=== PATIENT | female | born 1945 | race Caucasian/White ===

== ENCOUNTER 2016-11-21 13:14 | Outpatient (CLI) | payer MEDICARE, OTHER | END 2016-11-21 13:15 | disposition home or self-care (01) | DX: R19.7 Diarrhea, unspecified (principal) ==

== ENCOUNTER 2017-03-01 08:00 | Outpatient (CLI) | payer MEDICARE, OTHER ==
[2017-03-01 13:12] LABS: CREATININE 0.8 mg/dL (0.4-1.0)
== END 2017-03-01 23:59 ==
LOC: LAB 08:00
PROVIDERS: ATTEND Psychiatry & Neurology Neurology
DX: Z53.9 Procedure and treatment not carried out, unspecified reason (principal)
CPT/HCPCS: 36415; 82565

== ENCOUNTER 2017-03-01 12:46 | Outpatient (CLI) | payer MEDICARE, OTHER | END 2017-03-01 12:47 | disposition home or self-care (01) | LOC: LAB 12:46 | PROVIDERS: ATTEND Psychiatry & Neurology Neurology | DX: R90.89 Other abnormal findings on diagnostic imaging of central nervous system (principal) ==

== ENCOUNTER 2017-03-05 13:00 | Outpatient (CLI) | payer MEDICARE, OTHER ==
[2017-03-05] MEDS ORDERED: GADOBUTROL 7.5 MMOL/7.5 ML VIAL IVP ONE ×2 (13:51)
--- NOTE | 2017-03-05 20:58 | MRI Report ---
EXAM: MRI BRAIN WITHOUT AND WITH CONTRAST EXAM DATE: 03/05/2017 01:53 PM. CLINICAL HISTORY: Abnormal brain MRI. COMPARISON: 09/08/2016, 08/22/2016. TECHNIQUE: Multiplanar, multisequence T1-weighted and fluid-sensitive MR sequences of the brain were performed. Sequences optimized for routine evaluation. Other: None. Without and with IV Contrast: Wit hout and with contrast, 7 cc IV Gadavist. FINDINGS: Redemonstrated is a focal cluster of abnormal T1 hypointense, T2 hyperintensity in the subcortical wh ite matter of the left supramarginal gyrus, left parietal lobe without significant mass effect or vol ume loss. Lesion measures 14 x 25 mm in transaxial dimension, unchanged compared to 08/22/2016. As be fore, there is associated T2 shine-through and hyperintensity on diffusion weighted sequence. There i s no associated enhancement or hemorrhage. Remainder of the brain parenchyma shows normal signal and morphology. There is a punctate focus of microhemorrhage in the deep white matter of the right parietal-occipital lobe (image 13 series 801), without significant change. No other areas of microhemorrhage demonstrat ed. Limited evaluation of the arterial and dural venous sinus structures is unremarkable. Orbits, optic nerve sheath complex, optic chiasm, pituitary, cavernous sinus and Meckel's cave appear normal. Marrow signal and extracranial soft tissue appear unremarkable. Craniocervical junction and visualized upper cervical cord appear normal. IMPRESSION: 1. Stable focal area of T2 prolongation in the subcortical white matter of the right supramarginal gy kiko, parietal lobe without mass effect, enhancement or hemorrhage. Differential consideration include s cortical dysplasia, dysembryoplastic neuroepithelial tumor (DNET) versus other primary neoplasm, ve rsus atypical dilated perivascular spaces. 2. Otherwise unremarkable MRI of the brain without and with contrast. [facility] Referring Provider Line: [phone] SITE ID: [id number]
== END 2017-03-05 13:01 | disposition home or self-care (01) ==
LOC: LAB 13:00
PROVIDERS: ATTEND Psychiatry & Neurology Neurology
DX: R90.89 Other abnormal findings on diagnostic imaging of central nervous system (principal)
CPT/HCPCS: 36415; 70553; 82565; A9585

== ENCOUNTER 2017-07-18 13:38 | Outpatient (CLI) | payer MEDICARE, OTHER ==
--- NOTE | 2017-07-19 13:32 | Mammography Report ---
DIGITAL SCREENING MAMMOGRAM: 07/18/2017 CLINICAL INDICATION: A 71-year-old nulliparous patient with history of benign left breast biopsy, fam andra history of breast cancer, for screening. COMPARISON: 06/2016, 04/2015, 04/2014, 05/2013, 03/2012, 01/2011, 01/2010. TECHNIQUE: Routine CC and MLO projections were obtained of the breasts. FINDINGS: The breasts demonstrate scattered fibroglandular densities bilaterally. Postoperative dominguez ges in the left breast are stable. No suspicious masses, clustered microcalcifications, or regions of architectural distortion are identified. IMPRESSION: BENIGN FINDINGS. RECOMMENDATION: ROUTINE ANNUAL SCREENING UNLESS OTHERWISE CLINICALLY INDICATED. BIRADS CATEGORY 2-BENIGN FINDINGS. STANDARD QUALIFYING STATEMENTS 1. This examination was reviewed with the aid of Computer-Aided Detection (CAD). 2. A negative or benign imaging report should not delay biopsy if clinically suspicious findings are present. Consider surgical consultation if warranted. More than 5% of cancers are not identified by i maging. 3. Dense breasts may obscure an underlying neoplasm. JOB #: [id number] EXT JOB #:[id number]
== END 2017-07-18 13:39 | disposition home or self-care (01) ==
LOC: DI.N 13:38
PROVIDERS: ATTEND Internal Medicine
DX: Z12.31 Encounter for screening mammogram for malignant neoplasm of breast (principal); Z80.3 Family history of malignant neoplasm of breast
CPT/HCPCS: 77067

== ENCOUNTER 2017-09-02 11:35 | Outpatient (CLI) | payer MEDICARE, OTHER ==
[~2017-09-02 11:35] MED LIST: GADOBUTROL 7.5 MMOL/7.5 ML VIAL ONE
[2017-09-02 12:01] LABS: CREATININE 0.7 mg/dL (0.4-1.0)
[2017-09-02] MEDS ORDERED: GADOBUTROL 7.5 MMOL/7.5 ML VIAL IVP ONE (12:57)
--- NOTE | 2017-09-02 13:53 | MRI Report ---
EXAM: MRI BRAIN WITHOUT AND WITH CONTRAST EXAM DATE: 09/02/2017 01:04 PM. CLINICAL HISTORY: Follow-up abnormal MRI of the brain. Right parietal T2 hyperintense signal abnormal ity has previously been reported. COMPARISON: MRI of the brain 08/22/2016 and MRI of the brain 03/05/2017.. TECHNIQUE: Multiplanar, multisequence T1-weighted and fluid-sensitive MR sequences of the brain were performed. Sequences optimized for routine evaluation. Other: None. IV Contrast: Without and with 6 m L Gadavist. FINDINGS: Stable patchy and nodular foci of abnormal subcortical T2 hyperintensity as previously described in t he right parietal lobe. No interval progression or enlargement. No developing restricted diffusion, s usceptibility artifact or enhancement. Brain MRI findings otherwise appear stable. Normal brain volume. No hydrocephalus. No hemorrhage, str jeniffer or enhancing mass. No acute appearing sinus or mastoid disease. The major arterial skull base luis w voids are present. No abnormal enhancement or mass in the regions of the IACs or pituitary fossa. C ontrast opacification of the major dural venous sinuses is present as expected. IMPRESSION: No acute abnormality or significant interval change. Stable T2 hyperintensities in the right parietal lobe as previously described, differential diagnosis is as previously enumerated. [facility] Referring Provider Line: [phone] SITE ID: [id number]
== END 2017-09-02 11:36 | disposition home or self-care (01) ==
LOC: LAB 11:35
PROVIDERS: ATTEND Psychiatry & Neurology Neurology
DX: R51 Headache (principal)
CPT/HCPCS: 36415; 70553; 82565; A9585

== ENCOUNTER 2018-03-24 11:52 | Outpatient (CLI) | payer MEDICARE, OTHER ==
--- NOTE | 2018-03-25 11:40 | XRAY Report ---
LEFT WRIST, FOUR VIEWS: 03/24/2018 HISTORY: Pain. COMPARISON: None. FINDINGS: There is advanced first metacarpocarpal degenerative change with joint space narrowing, sclerosis, subluxation and spurring. Two small bone fragments are seen along the radial aspect of the first metacarpocarpal articulation with minor soft tissue swelling. Less severe triscaphe joint degenerative changes. No acute fracture, other malalignment or other significant finding. IMPRESSION: ADVANCED FIRST METACARPOCARPAL DEGENERATIVE CHANGES WITH LESS SEVERE TRISCAPHE JOINT DEGENERATIVE CHANGES. TD: 03/25/2018 11:05 ANKITA
== END 2018-03-24 11:53 | disposition home or self-care (01) ==
LOC: DI.N 11:52
PROVIDERS: ATTEND Internal Medicine
DX: M19.032 Primary osteoarthritis, left wrist (principal)

== ENCOUNTER 2018-07-21 17:05 | Outpatient (CLI) | payer MEDICARE, OTHER ==
--- NOTE | 2018-07-21 18:36 | XRAY Report ---
Reason: RIGHT FOOT PAIN Procedure Date: 07/21/2018 Accession Number: [id number] / [id number] Procedure: XR - Foot 3 View RT CPT Code: FULL RESULT: EXAM: RIGHT FOOT RADIOGRAPHY EXAM DATE: 07/21/2018 05:27 PM. CLINICAL HISTORY: Dorsal right foot pain since stubbing foot on bed 3 days ago. COMPARISON: None. TECHNIQUE: 3 views. FINDINGS: Bones: Normal. No fractures or bone lesions. Joints: Degenerative spurring at the first MTP joint. No subluxations. Soft Tissues: Chronic soft tissue calcifications next to the second and third DIP joints and first MTP joint. IMPRESSION: No acute bony abnormality. [facility]
== END 2018-07-21 17:06 | disposition home or self-care (01) ==
LOC: DI 17:05
PROVIDERS: ATTEND Internal Medicine
DX: M79.671 Pain in right foot (principal)

== ENCOUNTER 2018-09-12 12:44 | Outpatient (CLI) | payer MEDICARE, OTHER ==
--- NOTE | 2018-09-15 09:17 | Mammography Report ---
Reason: annual screening Procedure Date: 09/12/2018 Accession Number: [id number] / [id number] Procedure: ESPERANZA - Screening Mammo w/Isaias CPT Code: FULL RESULT: EXAM: Screening Mammo w/Isaias DATE: 09/12/2018 1:29 PM CLINICAL HISTORY: 72 year-old nulliparous female with history of fine-needle aspiration as well as excisional breast biopsy presents for screening. TECHNIQUE: Bilateral CC and MLO views were obtained. COMPARISON: 07/10/2017, 06/26/2016, 05/19/2015, 05/12/2014. FINDINGS: The breasts demonstrate scattered fibroglandular densities bilaterally. Postsurgical changes are seen in the left breast. No suspicious masses, clustered microcalcifications, or regions of architectural distortion are identified. IMPRESSION: Benign findings RECOMMENDATION: Routine annual screening unless otherwise clinically indicated. BIRADS CATEGORY 2: Benign findings STANDARD QUALIFYING STATEMENTS: 1. This examination was not reviewed with the aid of Computer-Aided Detection (CAD). 2. A negative or benign imaging report should not delay biopsy if clinically suspicious findings are present. Consider surgical consultation if warranted. More than 5% of cancers are not identified by imaging. 3. Dense breasts may obscure an underlying neoplasm. 4. This examination was reviewed with the aid of 3D breast imaging (tomosynthesis).
== END 2018-09-12 12:45 | disposition home or self-care (01) ==
LOC: DI 12:44
DX: Z12.31 Encounter for screening mammogram for malignant neoplasm of breast (principal)
CPT/HCPCS: 77063; 77067

== ENCOUNTER 2019-09-14 15:38 | Outpatient (CLI) | payer MEDICARE, OTHER ==
--- NOTE | 2019-09-15 09:13 | Mammography Report ---
Reason: SCREENING MAMMO Procedure Date: 09/14/2019 Accession Number: [id number] / [id number] Procedure: ESPERANZA - Screening Mammo w/Isaias CPT Code: Final Report FULL RESULT: EXAM: Screening Mammo w/Isaias DATE: 09/14/2019 4:00 PM CLINICAL HISTORY: The patient is an asymptomatic 73-year-old female presenting for screening mammography. No family history of breast cancer. Personal history of left breast excisional biopsy (benign). TECHNIQUE: (B) - Bilateral CC and MLO views were obtained. COMPARISON: 09/12/2018, 07/18/2017, 06/26/2016, 05/19/2015 and 05/12/2014 PARENCHYMAL PATTERN: (A) - The breasts demonstrate scattered fibroglandular densities bilaterally. FINDINGS: The pattern of asymmetry is stable given positional variation. Excisional biopsy changes in the left breast are again noted. There are no suspicious masses, calcifications, or areas of distortion. IMPRESSION: Benign findings. BI-RADS category 2. RECOMMENDATION: (ANNUAL) - Recommend routine annual screening mammography. BI-RADS CATEGORY: (2) - Benign Findings. STANDARD QUALIFYING STATEMENTS: 1. This examination was not reviewed with the aid of Computer-Aided Detection (CAD). 2. A negative or benign imaging report should not preclude biopsy if clinically suspicious findings are present. 3. Dense breasts may obscure an underlying neoplasm. 4. This examination was reviewed the aid of 3D breast imaging (tomosynthesis).
== END 2019-09-14 15:39 | disposition home or self-care (01) ==
LOC: DI 15:38
PROVIDERS: ATTEND Internal Medicine
DX: Z12.31 Encounter for screening mammogram for malignant neoplasm of breast (principal)
CPT/HCPCS: 77063; 77067

== ENCOUNTER 2019-10-07 09:20 | Day surgery (SDC) | payer MEDICARE, OTHER ==
[2019-10-07] MEDS ORDERED: fentaNYL 250 MCG/5 ML VIAL IVP ONE (09:21)
[2019-10-07] MEDS ORDERED: MIDAZOLAM 2 MG/2 ML VIAL IVP ONE (09:21)
[2019-10-07] MEDS ORDERED: LACTATED RINGERS 1,000 ML IV ONE (09:22)
[2019-10-07] MEDS ORDERED: LIDO GARGLE 30 ML BOTTLE ONE (10:29)
[2019-10-07] MEDS ORDERED: LIDO GARGLE 30 ML BOTTLE TOP ONE (10:58)
[2019-10-07 12:19] VITALS: BP 125/76
== END 2019-10-07 09:21 | disposition home or self-care (01) ==
LOC: SDS 09:20
PROVIDERS: ATTEND Surgery
PROC: 0DB68ZX Excision of Stomach, Via Natural or Artificial Opening Endoscopic, Diagnostic (ICD-10-PCS; 2019-10-07)
PROC: 0DB48ZX Excision of Esophagogastric Junction, Via Natural or Artificial Opening Endoscopic, Diagnostic (ICD-10-PCS; 2019-10-07)
PROC: 0DJD8ZZ Inspection of Lower Intestinal Tract, Via Natural or Artificial Opening Endoscopic (ICD-10-PCS; principal; 2019-10-07 10:45)
PROC: 0DB98ZX Excision of Duodenum, Via Natural or Artificial Opening Endoscopic, Diagnostic (ICD-10-PCS; 2019-10-07 10:45)
DX: Z12.11 Encounter for screening for malignant neoplasm of colon (principal); K21.9 Gastro-esophageal reflux disease without esophagitis; R49.9 Unspecified voice and resonance disorder; K64.8 Other hemorrhoids; K57.30 Diverticulosis of large intestine without perforation or abscess without bleeding; K64.4 Residual hemorrhoidal skin tags; K44.9 Diaphragmatic hernia without obstruction or gangrene; K22.9 Disease of esophagus, unspecified
CPT/HCPCS: 43239; A9270; G0121; J3010; J7120

== ENCOUNTER 2020-12-12 12:40 | Outpatient (CLI) | payer MEDICARE, OTHER ==
--- NOTE | 2020-12-13 12:30 | Mammography Report ---
BILATERAL DIGITAL SCREENING MAMMOGRAM 3D/2D: 12/12/2020 CLINICAL: Routine screening. Comparison is made to exams dated: 09/14/2019 mammogram, 09/12/2018 mammogram, 07/18/2017 mammogram, 06/26/2016 mammogram, 05/19/2015 mammogram, and 05/12/2014 mammogram - [facility]. The tissue of both breasts is predominantly fatty. No significant masses, calcifications, or other findings are seen in either breast. There has been no significant interval change. IMPRESSION: NEGATIVE There is no mammographic evidence of malignancy. A 1 year screening mammogram is recommended. This exam was interpreted at Station ID: [id number]. NOTE: For mammograms, a report in lay terms will be sent to the patient. Approximately 15% of breast malignancies will not be visualized mammographically. In the management of a palpable breast mass, a negative mammogram must not discourage biopsy of a clinically suspicious lesion. Electronically Signed By: Jesús Figueroa M.D., jr/domingo:12/12/2020 13:56:17 ACR BI-RADS Category 1: Negative 3341F PARENCHYMAL PATTERN: (F) - The breast(s) demonstrate(s) diffuse fatty replacement. BI-RADS CATEGORY: (1) - 1 RECOMMENDATION: (ANNUAL) - Recommend routine annual screening mammography. [id number] 1 year screening LATERALITY: (B)
== END 2020-12-12 12:41 | disposition home or self-care (01) ==
LOC: DI.N 12:40
PROVIDERS: ATTEND Internal Medicine
DX: Z12.31 Encounter for screening mammogram for malignant neoplasm of breast (principal)

== ENCOUNTER 2021-11-01 08:00 | Outpatient (CLI) | payer MEDICARE, OTHER | END 2021-11-01 23:59 | LOC: LAB.R 08:00 | PROVIDERS: ATTEND Internal Medicine | DX: Z20.822 Contact with and (suspected) exposure to COVID-19 (principal) ==

== ENCOUNTER 2021-12-22 07:00 | Outpatient (CLI) | payer MEDICARE, OTHER ==
[2021-12-22 17:13] LABS: BILIRUBIN,URINE NEGATIVE (NEGATIVE); GLUCOSE, URINE (UA) NEGATIVE (NEGATIVE); KETONES,URINE (UA) NEGATIVE (NEGATIVE); LEUKOCYTE ESTERASE, URINE NEGATIVE (NEGATIVE); NITRITE,URINE NEGATIVE (NEGATIVE); OCCULT BLOOD,URINE SMALL (NEGATIVE); PROTEIN,URINE NEGATIVE (NEGATIVE); UROBILINOGEN,URINE 0.2 (NORMAL) E.U./dL (NORMAL)
[2021-12-22 17:15] LABS: CLARITY,URINE HAZY (CLEAR)
[2021-12-22 18:08] LABS: BACTERIA,URINE None Seen /HPF (None Seen); RBC,URINE 0-5 /HPF (0-5); SQUAMOUS EPITHELIAL CELL,UR RARE Squamous (<= Few); WBC,URINE 0-3 /HPF (0-5)
== END 2021-12-22 23:59 | disposition home or self-care (01) ==
LOC: LAB.R 07:00
PROVIDERS: ATTEND Internal Medicine
DX: R10.9 Unspecified abdominal pain (principal); R39.15 Urgency of urination; N39.0 Urinary tract infection, site not specified
CPT/HCPCS: 81001; 81003; 87086

== ENCOUNTER 2022-09-06 08:00 | Outpatient (CLI) | payer MEDICARE, OTHER ==
[2022-09-06 16:08] LABS: BASOPHILS % (AUTO) 0.5 %; HCT - HEMATOCRIT 39.8 % (37.0-47.0); HGB - HEMOGLOBIN 13.1 g/dL (12.0-16.0); LYMPHOCYTES # (AUTO) 1.3 10^3/uL (1.5-3.5); LYMPHOCYTES % (AUTO) 33.4 %; MEAN CORPUSCULAR HEMOGLOBIN 31.9 pg (27.0-31.0); MEAN CORPUSCULAR HGB CONC 32.9 g/dL (32.0-36.0); MEAN CORPUSCULAR VOLUME 96.8 fL (81.0-99.0); MEAN PLATELET VOLUME 8.9 fL (7.9-10.8); MONOCYTES # (AUTO) 0.5 10^3/uL (0.0-1.0); MONOCYTES % (AUTO) 11.5 %; NEUTROPHILS # (AUTO) 2.2 10^3/uL (1.5-6.6); NEUTROPHILS % (AUTO) 53.6 %; PLT - PLATELET COUNT 217 10^3/uL (130-450); RED BLOOD COUNT 4.11 10^6/uL (4.20-5.40); RED CELL DISTRIBUTION WIDTH 12.6 % (12.0-15.0)
[2022-09-06 17:29] LABS: ALBUMIN 4.7 g/dL (3.2-5.5); ALBUMIN/GLOBULIN RATIO 1.6 (1.0-2.2); ALKALINE PHOSPHATASE 53 IU/L (42-121); ALT ALANINE AMINOTRANSFERASE 19 IU/L (10-60); AST ASPARTATE AMINOTRANSFERASE 25 IU/L (10-42); BILIRUBIN,TOTAL 0.9 mg/dL (0.2-1.0); BUN - BLOOD UREA NITROGEN 10 mg/dL (6-20); CALCIUM 9.2 mg/dL (8.5-10.3); CARBON DIOXIDE - CO2 28 mmol/L (21-32); CHLORIDE 100 mmol/L (101-111); CHOLESTEROL 259 mg/dL; CREATININE 0.7 mg/dL (0.4-1.0); GFR - MDRD 82 (>89); GLUCOSE 88 mg/dL (70-100); HDL CHOLESTEROL 85 mg/dL; LDL CHOLESTEROL,CALCULATED 157 mg/dL; LDL/HDL RATIO 1.8 (<4.4); POTASSIUM 3.6 mmol/L (3.5-5.0); SODIUM 138 mmol/L (135-145); TOTAL PROTEIN 7.6 g/dL (6.7-8.2); TRIGLYCERIDES 83 mg/dL; VLDL CHOLESTEROL 17 mg/dL
== END 2022-09-06 23:59 | disposition home or self-care (01) ==
LOC: LAB.R 08:00
PROVIDERS: ATTEND Internal Medicine
DX: Z00.00 Encounter for general adult medical examination without abnormal findings (principal); J30.9 Allergic rhinitis, unspecified; E78.5 Hyperlipidemia, unspecified; I10 Essential (primary) hypertension; M85.80 Other specified disorders of bone density and structure, unspecified site; Z79.899 Other long term (current) drug therapy
CPT/HCPCS: 80053; 80061; 83721; 84443; 85025

== ENCOUNTER 2023-10-10 09:24 | Outpatient (CLI) | payer MEDICARE, OTHER ==
--- NOTE | 2023-10-11 12:27 | Mammography Report ---
BILATERAL DIGITAL SCREENING MAMMOGRAM 3D/2D: 10/10/2023 CLINICAL: Routine screening. Comparison is made to exams dated: 05/24/2022 ultrasound, 05/24/2022 mammogram, 12/12/2020 mammogram, mammogram, 09/12/2018 mammogram, and 07/18/2017 mammogram - [facility]. There are scattered areas of fibroglandular density in both breasts (category b / 25%-50% glandular t issue). No significant masses, calcifications, or other findings are seen in either breast. There has been no significant interval change. IMPRESSION: NEGATIVE There is no mammographic evidence of malignancy. A 1 year screening mammogram is recommended. Based on the Tyrer Cuzick model (a risk assessment model) the patients lifetime risk is 3.8% and her 10 year risk is 0.0%. According to the ACR, ACS, and NCCN guidelines, an annual breast MRI exam andra g with mammogram is recommended if the patients lifetime risk is 20% or greater. This exam was interpreted at Station ID: [id number]. NOTE: For mammograms, a report in lay terms will be sent to the patient. Approximately 15% of breast malignancies will not be visualized mammographically. In the management of a palpable breast mass, a negative mammogram must not discourage biopsy of a clinically suspicious lesion. Electronically Signed By: Malou Whitaker M.D., PH.D /domingo:10/10/2023 22:52:08 letter sent: No_Letter ACR BI-RADS Category 1: Negative 3341F PARENCHYMAL PATTERN: (A) - The breast(s) demonstrate(s) scattered fibroglandular densities. BI-RADS CATEGORY: (1) - 1 Mammogram [id number] 1 year screening LATERALITY: (B)
== END 2023-10-10 09:25 | disposition home or self-care (01) ==
LOC: DI.N 09:24
PROVIDERS: ATTEND Internal Medicine
DX: Z12.31 Encounter for screening mammogram for malignant neoplasm of breast (principal); R92.323 Mammographic fibroglandular density, bilateral breasts

== ENCOUNTER 2024-01-20 15:55 | Outpatient (CLI) | payer MEDICARE, OTHER ==
--- NOTE | 2024-01-20 17:16 | XRAY Report ---
PROCEDURE: Foot 3+V RT INDICATIONS: RIGHT FOOT PAIN TECHNIQUE: 3 views of the foot were acquired. COMPARISON: 07/21/2018. FINDINGS: Bones: Mild progression of first MTP degenerative change, moderate. No fractures or dislocations. N o suspicious bony lesions. Soft tissues: No tibiotalar joint effusion. Achilles tendon appears normal. IMPRESSION: Slight progression of first MTP degenerative change, moderate. No acute bony abnormality. Reviewed by: Jorge Stuart MD on 01/20/2024 5:15 PM PDT Approved by: Jorge Stuart MD on 01/20/2024 5:15 PM PDT Station ID: [id number]
== END 2024-01-20 15:56 | disposition home or self-care (01) ==
LOC: DI 15:55
PROVIDERS: ATTEND Internal Medicine
DX: M19.071 Primary osteoarthritis, right ankle and foot (principal)

== ENCOUNTER 2024-02-06 08:47 | Outpatient (CLI) | payer MEDICARE, OTHER ==
--- NOTE | 2024-02-06 13:13 | Ultrasound Report ---
PROCEDURE: Aorta Screening INDICATIONS: FAM HIST OF AAA TECHNIQUE: Real time scanning was performed of the aorta and iliac arteries, with image documentatio n. COMPARISON: None. FINDINGS: Aorta: Proximal aortic diameter measures 2.7 x 2.8 cm. Mid-aorta measures 2.2 x 2.2 cm. Distal aor tic diameter is 1.8 x 1.7 cm. Iliac arteries: Right common iliac artery measures 1.0 x 1.0 cm. Left common iliac artery measures 1.0 x 1.2 cm. IMPRESSION: Normal-sized aorta. Based on recommendations described below, consider follow-up ultrasound in 5 year s. Recommended intervals for follow-up imaging of ectatic aortas and abdominal aortic aneurysms, per ACR consensus guidelines: 2.5-2.9 cm: 5 years 3.0-3.4 cm: 3 years 3.5-3.9 cm: 2 years 4.0-4.4 cm: 1 year 4.5-4.9 cm: 6 months + endovascular referral 5.0-5.5 cm: 3-6 months + endovascular referral Reviewed by: Jorge Stuart MD on 02/06/2024 1:12 PM PDT Approved by: Jorge Stuart MD on 02/06/2024 1:12 PM PDT Station ID: [id number]
== END 2024-02-06 08:48 | disposition home or self-care (01) ==
LOC: DI 08:47
PROVIDERS: ATTEND Internal Medicine
DX: Z13.6 Encounter for screening for cardiovascular disorders (principal); Z82.49 Family history of ischemic heart disease and other diseases of the circulatory system

== ENCOUNTER 2024-04-14 08:00 | Outpatient (CLI) | payer MEDICARE, OTHER | END 2024-04-14 23:59 | disposition home or self-care (01) | LOC: LAB.N 08:00 | PROVIDERS: ATTEND Physician Assistant Medical | DX: J02.9 Acute pharyngitis, unspecified (principal) | CPT/HCPCS: 87070 ==